=== PATIENT | male | born 1985 | race Caucasian/White ===

== ENCOUNTER 2021-03-23 12:16 | Outpatient (REF) | payer BC, SELFPAY ==
--- NOTE | 2021-03-23 12:28 | ECG_ITS ---
Test Reason : palpitations Blood Pressure : / mmHG Vent. Rate : 103 BPM Atrial Rate : 103 BPM P-R Int : 148 ms QRS Dur : 086 ms QT Int : 338 ms P-R-T Axes : 056 023 046 degrees QTc Int : 442 ms Sinus tachycardia Otherwise normal ECG No previous ECGs available Referred By: Thuy Donis Electronically Signed By:DEE DEE NELSON MD
[2021-03-23 13:30] LABS: Cholesterol 305 mg/dL; HDL Cholesterol 42 mg/dL; LDL Cholesterol Calculated 213 mg/dl; Triglycerides 254 mg/dL
== END 2021-03-23 12:17 | disposition home or self-care (01) ==
LOC: HO.LAB 12:16
PROVIDERS: Visit Provider Internal Medicine Cardiovascular Disease
DX: R00.2 Palpitations (principal)
CPT/HCPCS: 36415; 80061; 93005